=== PATIENT | female | born 1940 | race Two or more races ===

== ENCOUNTER 2016-03-26 12:56 | Emergency (ER) | payer MEDICARE, OTHER ==
--- NOTE | 2016-03-26 14:40 | CT ---
Exams: CT head without contrast, CT cervical spine without contrast COMPARISON: Cervical spine radiographs 11/22/2007 INDICATION: Ground-level fall, hitting top of head. Head and neck pain. TECHNIQUE: CT examination of the head was obtained without contrast. CT examination of the cervical spine was obtained without contrast. FINDINGS: CT HEAD: Soft tissue hematoma seen over the left side of the head towards the vertex. No underlying fracture is identified. There is no acute intracranial hemorrhage. There is no abnormal intra or extra-axial fluid collection. There is no edema, mass effect or midline shift. Mild periventricular white matter hypodensities are noted, most compatible with chronic small vessel ischemic changes. Ventricles are normal in size. Visualized paranasal sinuses and mastoid air cells are well aerated. CT cervical spine: There is straightening of the normal cervical lordosis. Atlantoaxial and atlantooccipital relationships are maintained. There is no prevertebral soft tissue swelling. There is mild multilevel degenerative disc disease. No acute fracture is identified. Limited evaluation of the lung apices demonstrates no pneumothorax. Paravertebral soft tissues are unremarkable. IMPRESSION: 1. No acute intracranial abnormality. Soft tissue hematoma over the left side of the head without underlying fracture. 2. No acute osseous abnormality in the cervical spine. Report was uploaded to the EMR at 1436 hours 03/26/2016.
[2016-03-26] MEDS ORDERED: ACETAMINOPHEN 500 MG TABLET ONE (14:58)
== END 2016-03-26 15:09 | disposition home or self-care (01) ==
LOC: ED 12:56
DX: S09.90XA Unspecified injury of head, initial encounter (principal); M50.30 Other cervical disc degeneration, unspecified cervical region; W01.110A Fall on same level from slipping, tripping and stumbling with subsequent striking against sharp glass, initial encounter; Y92.9 Unspecified place or not applicable
CPT/HCPCS: 72125; 70450; 99283 ×2; A9270

== ENCOUNTER 2016-04-08 06:34 | Day surgery (SDC) | payer MEDICARE, OTHER ==
--- NOTE | 2016-04-07 12:00 | HP ---
Kalina Yun : 1940 HISTORY OF PRESENT ILLNESS: This is a 75-year-old female who had chief complaint of leakage of urine with laughing and coughing at times. She was referred for endometrial thickening on ultrasound and endometrial biopsy was performed in February which showed benign inactive endometrium. At that time, a pessary was discussed versus surgical treatment for leakage of urine and she has elected to have a anterior colporrhaphy and Martha plication. Her last pap smear was normal. OB HISTORY: Patient is a 9, para 9-0-0-6, nine vaginal deliveries. 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 No history of hormone replacement therapy and no history of sexually transmitted diseases. PAST MEDICAL HILSTORY: Includes chronic renal disease stage III, diabetes, essential hypertension, gastroesophageal reflux disease. She also had polyps noted in her colon. Colonoscopy performed by Dr. Singh. MEDICATIONS: Include: 1. Actos. 2. Carvedilol. 3. Losartan. 4. Lovastatin. 5. Omeprazole. 6. Aspirin. 7. Glipizide. 8. Flax seed oil. PAST SURGICAL HISTORY: Includes appendectomy. ALLERGIES: PENICILLIN, ALSO PHAM INHIBITORS AND METFORMIN. REVIEW OF SYSTEMS: Noncontributory with the exception of the leakage of urine. PHYSICAL EXAMINATION: GENERAL: Is a elderly female in no acute distress. HEENT: Normal. NECK: Supple. Thyroid not palpable. BREAST: Soft, no masses. HEART: Regular sinus rhythm. No murmurs. LUNGS: Clear. ABDOMEN: Benign. PELVIC: External genitalia healthy. Vagina showed a small cystocele. Cervix was pink and nontender. Uterus small, anteverted and nontender. Adnexa negative. IMPRESSION: Cystocele with stress urinary incontinence and history of hypertension and diabetes. PLAN: Anterior colporrhaphy and Martha plication. Risk, reasons, complications, living will, alternatives discussed, anesthesia risks discussed in laypersons terms and all questions answered. Failure of surgery to relieve symptoms also discussed. JOB: [id number]
[2016-04-08] MEDS ORDERED: LACTATED RINGERS 1,000 ML ONE (06:57)
[2016-04-08] MEDS ORDERED: IV START KIT ONE (06:57)
[2016-04-08] MEDS ORDERED: CLINDAMYCIN 600 MG PREMIX 50 ML IV ONE (07:03)
[2016-04-08] MEDS ORDERED: LIDOCAINE 1% 2 ML VIAL ID PRN (07:15)
[2016-04-08] MEDS ORDERED: CLINDAMYCIN 600 MG PREMIX 600 MG in Premix (D5W) 50 ml 1 EACH IV PRN (07:15)
[2016-04-08] MEDS ORDERED: LACTATED RINGERS 1,000 ML IV SCH ×2 (07:15→10:30)
[2016-04-08] MEDS ORDERED: MIDAZOLAM HCL 1 MG/ML 2ML VIAL ONE (08:03)
[2016-04-08] MEDS ORDERED: DEXAMETHASONE SOD PHOS 4 MG/1 ML VIAL ONE (08:03)
[2016-04-08] MEDS ORDERED: LIDOCAINE 2% (PRES FREE) 5 ML VIAL ONE (08:03)
[2016-04-08] MEDS ORDERED: METOCLOPRAMIDE HCL 5 MG/ML 2ML VIAL ONE (08:03)
[2016-04-08] MEDS ORDERED: KETOROLAC TROMETHAMINE 30 MG/ML 1 ML VIAL ONE (08:03)
[2016-04-08] MEDS ORDERED: FENTANYL 100 MCG/2 ML VIAL ONE (08:03)
[2016-04-08] MEDS ORDERED: PROPOFOL 20 ML IV ONE ×2 (08:03→10:16)
[2016-04-08] MEDS ORDERED: SPINAL PROCEDURAL TRAY 1 EACH ONE (09:14)
[2016-04-08] MEDS ORDERED: BUPIVACAINE 0.75% SPINAL AMPUL 2 ML ONE (09:14)
[2016-04-08] MEDS ORDERED: KETAMINE HCL UD SYRINGE 100 MG/2 ML IV ONE (09:53)
[2016-04-08] MEDS ORDERED: FENTANYL 100 MCG/2 ML VIAL IV PRN (10:16)
[2016-04-08] MEDS ORDERED: ONDANSETRON 4 MG/2ML 2 ML VIAL IV PRN (10:16)
[2016-04-08] MEDS ORDERED: PROMETHAZINE HCL 25 MG/ML VIAL IM PRN (10:16)
[2016-04-08] MEDS ORDERED: ATROPINE SULFATE 0.4 MG/1 ML VIAL IV PRN (10:16)
[2016-04-08] MEDS ORDERED: HYDROMORPHONE HCL 1 MG/ML SYRINGE IV PRN (10:16)
[2016-04-08] MEDS ORDERED: NALOXONE HCL 0.4 MG/ML VIAL IV PRN (10:16)
[2016-04-08] MEDS ORDERED: LABETALOL HCL 5 MG/ML IV ONE (10:29)
--- NOTE | 2016-04-08 10:34 | PCMBPN ---
Brief Post Op Note: Date of Procedure: 04/08/16 Start Time: Preoperative Diagnosis: 1. cystocele, stress urinary incontinence Postoperative Diagnosis: 1. Same Procedure: anterior colporrhaphy, gucci plication Surgeon: Boy Ruvalcaba Assist:dr montenegro Anesthesia: spinal, mr isaura Findings: small cystocele, external genitalia healthy, cervix pink Condition: stable Complications: none IV Fluids: mLs of LR Urine Output: 300 mLs Estimated Blood Loss: less than 5 mLs Tourniquet Time: N/A Specimens: vaginal mucosa Implants: Drains: N/A patient tolerated procedure well and was returned to recover room in stable condition, no packing inserted.
[2016-04-08] MEDS ORDERED: ACETAMINOPHEN 325 MG TABLET PO PRN (10:35)
[2016-04-08] MEDS ORDERED: DOCUSATE SODIUM 100 MG CAPSULE PO PRN (10:35)
[2016-04-08] MEDS ORDERED: MAG HYDROX/AL HYDROX/SIMETH 30 ML UDCUP PO PRN (10:35)
[2016-04-08] MEDS ORDERED: DIPHENHYDRAMINE HCL 25 MG CAPSULE PO PRN (10:35)
[2016-04-08] MEDS ORDERED: BLISTEX LIPSTICK 1 EACH TP PRN (10:35)
[2016-04-08] MEDS ORDERED: MAGNESIUM HYDROXIDE/AL HYDROX 30 ML UDCUP PO PRN (10:35)
[2016-04-08] MEDS ORDERED: MENTHOL/CETYLPYRD 1 EACH LOZENGE PO PRN (10:35)
[2016-04-08] MEDS ORDERED: LABETALOL HCL 5 MG/ML 20ML VIAL IV ONE (10:55)
[2016-04-08] MEDS ORDERED: CEFAZOLIN SODIUM 1,000 MG VIAL ONE (11:24)
[2016-04-08] MEDS ORDERED: HYDRALAZINE HCL 20 MG/1 ML VIAL ONE (11:28)
[2016-04-08] MEDS ORDERED: HYDRALAZINE HCL 20 MG/1 ML VIAL IV ONE (11:55)
[2016-04-08 12:22] VITALS: BMI 32.7
--- NOTE | 2016-04-08 13:46 | OP ---
Kalina Yun : 1940 [id number] NAME OF OPERATION: Anterior colporrhaphy and Martha plication. PREOPERATIVE DIAGNOSIS: Cystocele with stress urinary incontinence. POSTOPERATIVE DIAGNOSIS: Cystocele with stress urinary incontinence. NURSE ASSESSOR: Dr. Boy Bautista. PROMOTION WRITER: Dr. Garcia. ANESTHESIA: Katheryn, Spinal. DESCRIPTION OF PROCEDURE: Dictation begins with the patient under spinal anesthesia. She was placed in the lithotomy position. A local area was prepared with Betadine and draped in the usual manner. The bladder was emptied of about 300 mL of clear yellow urine at the onset of the procedure. After a time out was performed, exam under spinal anesthesia revealed the external genitalia healthy, the cervix was pink, and the vagina appeared healthy with a small cystocele present. A weighted speculum was introduced into the vagina gently and then Allis clamps were used to grasp the vaginal mucosa in the midline. Approximately 1 cm below the urethral opening and then approximately 2 cm in front of the cervix. An midline incision was made in the vaginal mucosa with a knife and then the vaginal mucosa was sharply and bluntly dissected back using a knife and a finger wrapped in gauze. The Martha plication was then performed using 3-0 interrupted Chromic sutures x3, reducing the cystocele. The redundant vaginal mucosa was removed using a metzembaum scissors then reapproximated with the same suture material. The cystocele at the end of the procedure was reduced and there was complete hemostasis after closure of the vaginal mucosa. A Moncada catheter was inserted afterwards with clear yellow urine return. At this point, the operation was terminated. No vaginal packing was needed. The weighted speculum was removed and sponge and instrument count reported as correct and complete hemostasis. The patient tolerated the procedure well and was returned to recovery room in stable condition. JOB: [id number]
[2016-04-08] MEDS: PIOGLITAZONE HCL 15 MG TABLET PO SCH (13:58)
[2016-04-08] MEDS: GLIPIZIDE 5 MG TABLET PO SCH (16:42)
[2016-04-08] MEDS ORDERED: ONDANSETRON 4 MG/2ML 2 ML VIAL IV ONE (16:44)
[2016-04-08] MEDS ORDERED: IBUPROFEN 800 MG TABLET ONE (19:34)
[2016-04-08] MEDS ORDERED: LOVASTATIN 20 MG TABLET PO SCH (20:00)
[2016-04-08] MEDS: LOSARTAN POTASSIUM 50 MG TABLET PO SCH (20:56)
[2016-04-08] MEDS: CARVEDILOL 6.25 MG TABLET PO SCH (20:56)
--- NOTE | 2016-04-09 06:28 | PDOC5 ---
Hospital Course: ADMIT DATE: DISCHARGE DATE: 04/09/16 ADMISSION DIAGNOSES: cystocele, stress urinary incontinence PROCEDURES: anterior colporrhaphy and gucci plication HISTORY OF PRESENT ILLNESS: 75 year old presenting with small cystocele on gynecological exam associated with leakage of urine with laughing and coughing HOSPITAL COURSE: The patient had nausea/vomiting post operatively which resolved with zofran. lim catheter removed post op day one. prior to discharge will need residual urine checked. By day of discharge the patient is ambulating, eating, voiding, and passing flatus without difficulty. Pain is controlled. - Objective General: Afebrile, No Acute Distress Lungs: Clear to Auscultation Bilaterally, Normal Air Movement Abdomen: Soft, Non-Distended, No Tenderness Genitourinary: Indwelling Urinary Cath, Other (no vaginal bleeding) Extremities: No Tenderness Psych/Mental Status: Normal Affect, Normal Mood - Discharge Plan Condition: Good Disposition: Home Additional Instructions: no heavy lifting more than 15-20 pounds, nothing in vagina x 6 weeks, may take tylenol at home for analgesia, continue with your home medications, call if any bleeding or difficulty urinating, office visit one week with dr zamora for post operative follow up.
[2016-04-09] MEDS: GLIPIZIDE 5 MG TABLET PO SCH (07:46)
[2016-04-09 07:50] VITALS: BP 126/74
[2016-04-09] MEDS: PIOGLITAZONE HCL 15 MG TABLET PO SCH (08:42)
[2016-04-09] MEDS: CARVEDILOL 6.25 MG TABLET PO SCH (08:42)
[2016-04-09] MEDS: LOSARTAN POTASSIUM 50 MG TABLET PO SCH (08:42)
[2016-04-09] MEDS ORDERED: ASPIRIN (ENTERIC COATED) 81 MG TABLET.EC PO SCH (09:00)
[2016-04-09] MEDS ORDERED: OXYCODONE/ACETAMINOPHEN 5/325 MG TABLET PO PRN (10:36)
[2016-04-09] MEDS ORDERED: IBUPROFEN 800 MG TABLET PO PRN (10:36)
== END 2016-04-09 11:00 | disposition home or self-care (01) ==
LOC: SDC 06:34 → MS 12:48 → SDC 04-09 11:00
PROVIDERS: ATTEND Obstetrics & Gynecology
PROC: 0JQC0ZZ Repair Pelvic Region Subcutaneous Tissue and Fascia, Open Approach (ICD-10-PCS; principal; 2016-04-09)
DX: N81.10 Cystocele, unspecified (principal); N39.3 Stress incontinence (female) (male); E78.00 Pure hypercholesterolemia, unspecified; I10 Essential (primary) hypertension; E11.9 Type 2 diabetes mellitus without complications; Z79.82 Long term (current) use of aspirin; Z79.84 Long term (current) use of oral hypoglycemic drugs
CPT/HCPCS: 57240; A9270 ×9; J0360; J3010; J1100; J2765; J1885; J2250; J2405; J7120

== ENCOUNTER 2016-06-10 06:36 | Day surgery (SDC) | payer MEDICARE, OTHER ==
[2016-06-10] MEDS ORDERED: LACTATED RINGERS 1,000 ML ONE (07:20)
[2016-06-10] MEDS ORDERED: CEFAZOLIN SODIUM 2 GRAM DUPLEX 2 G in Premix (D5W) 50 ml 1 EACH IV PRN (07:20)
[2016-06-10] MEDS ORDERED: LIDOCAINE 1% 2 ML VIAL ID PRN (07:20)
[2016-06-10] MEDS ORDERED: IV START KIT ONE ×2 (07:20→22:43)
[2016-06-10] MEDS ORDERED: LACTATED RINGERS 1,000 ML IV SCH ×2 (07:20→09:30)
[2016-06-10] MEDS ORDERED: SODIUM CHLORIDE 0.9% FLUSH 10 ML ONE ×2 (07:39→22:43)
[2016-06-10] MEDS ORDERED: MIDAZOLAM HCL 1 MG/ML 2ML VIAL ONE (08:20)
[2016-06-10] MEDS ORDERED: FENTANYL 100 MCG/2 ML VIAL ONE (08:20)
[2016-06-10] MEDS ORDERED: SPINAL PROCEDURAL TRAY 1 EACH ONE (08:36)
[2016-06-10] MEDS ORDERED: CHLOROPROCAINE HCL 3% ONE (08:36)
[2016-06-10] MEDS ORDERED: LIDOCAINE 2% (PRES FREE) 5 ML VIAL ONE (08:40)
[2016-06-10] MEDS ORDERED: PROPOFOL 20 ML IV ONE (08:40)
[2016-06-10] MEDS ORDERED: VASOPRESSIN 20 UNITS/ML VIAL ONE (08:44)
[2016-06-10] MEDS ORDERED: SULFANILAMIDE 15% CREAM 20 APPLIC/120 G TUBE ONE (08:45)
[2016-06-10] MEDS ORDERED: ESTROGENS,CONJUGATED CREAM 30 G/TUBE VG ONE (08:45)
[2016-06-10] MEDS ORDERED: SODIUM CHLORIDE 0.9% 50 ML ONE (08:45)
[2016-06-10] MEDS ORDERED: CEFAZOLIN SODIUM 2 GRAM PREMIX 100 ML IV ONE (08:56)
[2016-06-10] MEDS ORDERED: ATROPINE SULFATE 0.4 MG/1 ML VIAL IV PRN (09:22)
[2016-06-10] MEDS ORDERED: NALOXONE HCL 0.4 MG/ML VIAL IV PRN (09:22)
[2016-06-10] MEDS ORDERED: ONDANSETRON 4 MG/2ML 2 ML VIAL IV PRN ×2 (09:22→10:59)
[2016-06-10] MEDS ORDERED: HYDRALAZINE HCL 20 MG/1 ML VIAL ONE (09:34)
[2016-06-10] MEDS: FENTANYL 100 MCG/2 ML VIAL IV PRN ×2 (10:38→10:54)
[2016-06-10] MEDS ORDERED: MAG HYDROX/AL HYDROX/SIMETH 30 ML UDCUP PO PRN (10:59)
[2016-06-10] MEDS ORDERED: MENTHOL/CETYLPYRD 1 EACH LOZENGE PO PRN (10:59)
[2016-06-10] MEDS ORDERED: ACETAMINOPHEN 325 MG TABLET PO PRN (10:59)
[2016-06-10] MEDS ORDERED: DIPHENHYDRAMINE HCL 50 MG/1 ML VIAL IV PRN (10:59)
[2016-06-10] MEDS ORDERED: DOCUSATE SODIUM 100 MG CAPSULE PO PRN (10:59)
[2016-06-10] MEDS ORDERED: BLISTEX LIPSTICK 1 EACH TP PRN (10:59)
[2016-06-10] MEDS ORDERED: MAGNESIUM HYDROXIDE/AL HYDROX 30 ML UDCUP PO PRN (10:59)
[2016-06-10 11:31] VITALS: BMI 29.9
[2016-06-10] MEDS: LACTATED RINGERS 1,000 ML IV SCH ×2 (12:00→22:59)
[2016-06-10] MEDS ORDERED: HYDROMORPHONE HCL 2 MG/ML SYRINGE IV PRN (12:14)
[2016-06-10] MEDS: KETOROLAC TROMETHAMINE 30 MG/ML 1 ML VIAL IV SCH ×3 (12:37→22:59)
[2016-06-10] MEDS ORDERED: OXYCODONE HCL 5 MG TABLET PO PRN (15:05)
[2016-06-10] MEDS: GLIPIZIDE 5 MG TABLET PO SCH (15:12)
--- NOTE | 2016-06-10 19:33 | OP ---
ADELE PUCKETT [id number] DATE OF OPERATION: 06/10/2016 SURGEON: Dr. 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 Marlene Garcia PREOPERATIVE DIAGNOSIS: Stress urinary incontinence. POSTOPERATIVE DIAGNOSIS: Stress urinary incontinence. OPERATION: TRANSOBTURATOR SLING. FINDINGS: There was a small urethrocele. TECHNICAL PROCEDURE: After induction of satisfactory spinal anesthesia, the patient was placed in the supine lithotomy position, prepped and draped in the usual fashion. The vaginal mucosa underlying the urethra was grasped between two Allis forceps and infiltrated with a pitressin solution and then incised longitudinally. Dissection was then carried-out, the mucosa from the underlying tissues. This dissection was then carried-out up to the obturator foramen on the right. Using blunt dissection, the bladder was swept cephalad. The same procedure was repeated on the left. Incisions were made with an 11 knife blade in the inguinal canal just inferior to the insertion of the adductor longus muscle, and this was done bilaterally. Using the Obtryx II trocar, the mesh was placed in the usual fashion. At this point, cystoscopy was performed. There was no evidence of mesh incursion into the bladder and the urine was noted to flow freely from both ureteral orifices. The Moncada catheter was replaced. The mesh was tensioned and the excess mesh excised. The vaginal mucosa was then closed with interrupted simple stitches of 3-0 Vicryl. The inguinal incisions were likewise closed with a skin adhesive and Steri-Strips. The procedure was then terminated. The patient tolerated the procedure well and left the operating room awake and in good condition. There were no complications. Instrument and sponge counts were correct. Estimated blood loss was 100 mL. There was no blood replacement. There were no specimens removed.
[2016-06-10] MEDS: LOSARTAN POTASSIUM 50 MG TABLET PO SCH (21:01)
[2016-06-10] MEDS: PANTOPRAZOLE 40 MG TABLET DR PO SCH (21:01)
[2016-06-10] MEDS: CARVEDILOL 6.25 MG TABLET PO SCH (21:02)
[2016-06-10] MEDS ORDERED: PUMP TUBING ONE (22:35)
[2016-06-11] MEDS: KETOROLAC TROMETHAMINE 30 MG/ML 1 ML VIAL IV SCH (05:11)
[2016-06-11 07:21] VITALS: BP 146/74
[2016-06-11] MEDS: LACTATED RINGERS 1,000 ML IV SCH (07:28)
[2016-06-11] MEDS: GLIPIZIDE 5 MG TABLET PO SCH (07:31)
--- NOTE | 2016-06-11 08:39 | PDOC5 ---
Hospital Course: ADMIT DATE: 06/10/2016 DISCHARGE DATE: 06/11/2016 ADMISSION DIAGNOSES: Stress urinary incontinence PROCEDURES: Transobturator sling HISTORY OF PRESENT ILLNESS: 75 year old presenting with stress urinary incontinence for surgical correction. HOSPITAL COURSE: The patient on the day of admission was taken to surgery where she underwent a transobturator sling. Her postoperative course was uncomplicated. By day of discharge the patient is ambulating, eating, voiding, and passing flatus without difficulty. Pain is controlled. - Objective General: Afebrile Abdomen: Soft, Non-Distended Genitourinary: No Indwelling Urinary Cath, No Vaginal Packing (Voidng wihtout difficulty) Extremities: Full ROM Skin: Normal Color, Warm, Dry Neurological: Grossly Intact - Discharge Plan Condition: Good Disposition: Home Additional Instructions: Maintain pelvic rest. Report if you have heavy bleeding, worsening pain, or a temperature over 100. Prescriptions: Oxycodone HCl [ROXICODONE 5 MG IR TABLET (SHF)] 5 mg PO Q4H PRN #30 tab PRN Reason: Pain Follow-Up: Joshua Lopez MD [Staff Physician] - In 2 weeks
[2016-06-11] MEDS ORDERED: LOVASTATIN 20 MG TABLET PO SCH (09:00)
[2016-06-11] MEDS ORDERED: PIOGLITAZONE HCL 15 MG TABLET PO SCH (09:00)
[2016-06-11] MEDS: LOSARTAN POTASSIUM 50 MG TABLET PO SCH (09:24)
[2016-06-11] MEDS: PANTOPRAZOLE 40 MG TABLET DR PO SCH (09:25)
[2016-06-11] MEDS: CARVEDILOL 6.25 MG TABLET PO SCH (09:25)
[2016-06-11] MEDS ORDERED: HYDROMORPHONE HCL 1 MG/ML SYRINGE IV PRN (10:01)
[2016-06-11] MEDS ORDERED: OXYCODONE HCL 5 MG TABLET PO PRN (10:01)
== END 2016-06-11 10:10 | disposition home or self-care (01) ==
LOC: SDC 06:36 → EDSTATUS 10:01 → MS 11:46 → SDC 06-11 10:10
PROVIDERS: ATTEND Obstetrics & Gynecology
PROC: 0TSD0ZZ Reposition Urethra, Open Approach (ICD-10-PCS; principal; 2016-06-10)
DX: N39.3 Stress incontinence (female) (male) (principal); E78.5 Hyperlipidemia, unspecified; I12.9 Hypertensive chronic kidney disease with stage 1 through stage 4 chronic kidney disease, or unspecified chronic kidney disease; E11.22 Type 2 diabetes mellitus with diabetic chronic kidney disease; N18.3 Chronic kidney disease, stage 3 (moderate); K21.9 Gastro-esophageal reflux disease without esophagitis; E66.9 Obesity, unspecified; Z68.33 Body mass index [BMI] 33.0-33.9, adult; Z88.0 Allergy status to penicillin; Z88.8 Allergy status to other drugs, medicaments and biological substances; Z79.82 Long term (current) use of aspirin; Z79.899 Other long term (current) drug therapy